=== PATIENT | female | born 1945 | race American Indian/Alaskan Native ===

== ENCOUNTER 2023-01-02 10:50 | Inpatient (IN) ==
[2023-01-02] MEDS ORDERED: IOPAMIDOL 100 ML BOTTLE IV ONE (10:51)
[2023-01-02] MEDS ORDERED: 0.9 % SODIUM CHLORIDE 1,000 ML IV ONE (11:01)
[2023-01-02 11:21] LABS: POC Calcium, Ionized 1.05 (1.16-1.32); POC Creatinine 0.6 (0.6-1.2); POC Potassium 4.5 (3.3-5.1)
[2023-01-02 11:53] LABS: Basophils # (Auto) 0.03 K/mcL (0.00-0.30); Basophils % (Auto) 0.4 % (0.0-2.0); Eosinophils # (Auto) 0.12 K/mcL (0.00-0.70); Eosinophils % (Auto) 1.5 % (0.0-7.0); Hematocrit 33.2 % (34.1-44.9); Hemoglobin 10.7 g/dL (11.2-15.7); Lymphocytes # (Auto) 1.17 K/mcL (1.50-4.80); Lymphocytes % (Auto) 14.8 % (15.5-49.0); Mean Cell Volume 81.6 fL (80.0-100.0); Mean Corpuscular HGB Conc 32.2 g/dL (31.0-36.0); Mean Platelet Volume 9.5 fL (8.8-12.5); Monocytes # (Auto) 0.85 K/mcL (0.10-0.90); Monocytes % (Auto) 10.8 % (1.0-12.0); Neutrophils % (Auto) 72.2 % (38.0-78.0); Platelet Count 450 K/mcL (140-440); RBC 4.07 M/mcL (3.59-5.38); Red Cell Distribution Width 15.7 % (11.5-14.5); WBC 7.9 K/mcL (4.5-11.0)
[2023-01-02 12:09] LABS: INR 1.4 (0.9-1.1); Prothrombin Time 17.2 sec (11.9-14.5)
[2023-01-02 12:14] LABS: ALT/SGPT 65 U/L (<40); AST/SGOT 69 U/L (<32); Albumin 2.7 gm/dL (3.2-5.2); Alkaline Phosphatase 163 U/L (39-117); Bilirubin,Direct < 0.2 mg/dL (0-0.3); Bilirubin,Total 0.3 mg/dL (0.1-1.0); Globulin 3.6 gm/dL (2.2-3.7)
[2023-01-02] MEDS ORDERED: FUROSEMIDE 40 MG/4 ML VIAL IV ONE (12:16)
[2023-01-02] MEDS ORDERED: VERAPAMIL 5 MG/2 ML VIAL IV ONE (12:34)
[2023-01-02] MEDS ORDERED: cefTRIAXone 1 GM VIAL IV ONE (13:06)
[2023-01-02 13:17] LABS: Appearance,Urine CLOUDY (Clear); Bacteria,Urine MANY /hpf (0); Bilirubin,Urine Negative (Negative); Color,Urine AMBER; Culture Indicated,Urine yes; Glucose,Urine (UA) >=500 mg/dL (Negative); Ketones,Urine Negative (Negative); Leukocyte Esterase,Urine 75 /uL (Negative); Mucus,Urine MANY /hpf; Nitrate,Urine Negative (Negative); Protein,Urine 30 mg/dL (Negative); Specific Gravity,Urine 1.023 (1.000-1.035); Urine Blood Negative (Negative); Urine Hyaline Cast 7 /lph (0-2); Urine RBC 7 /hpf (0-3); Urine Squamous Epithelial Cell 1 /hpf (0-4); Urine Transitional Epi Cells 2 /hpf (0-2); Urine WBC 168 /hpf (0-4)
[2023-01-02] MEDS ORDERED: POTASSIUM CHLORIDE 40 MEQ in DEXTROSE 5% IN WATER 500 ML IV PRN (16:53)
[2023-01-02] MEDS ORDERED: POLYETHYLENE GLYCOL 3350 17 GM PACKET PO PRN (16:53)
[2023-01-02] MEDS ORDERED: IPRATROPIUM/ALBUTEROL 3 ML AMPUL.NEB NEB PRN (16:53)
[2023-01-02] MEDS ORDERED: DEXTROSE 50% 50 ML VIAL IV PRN (16:53)
[2023-01-02] MEDS ORDERED: SENNOSIDES 1 TABLET PO PRN (16:53)
[2023-01-02] MEDS ORDERED: ACETAMINOPHEN 325 MG TABLET PO PRN (16:53)
[2023-01-02] MEDS ORDERED: DEXTROSE 31 GM ORAL.SUSP PO PRN (16:53)
[2023-01-02] MEDS ORDERED: MAGNESIUM SULFATE 2 GM/50 ML BAG IV PRN (16:53)
[2023-01-02] MEDS ORDERED: POTASSIUM CHLORIDE 20 MEQ TABLET PO PRN ×2 (16:53)
[2023-01-02] MEDS ORDERED: ONDANSETRON 4 MG/2 ML VIAL IV PRN (16:53)
[2023-01-02] MEDS: INSULIN LISPRO 1 UNIT/0.01 ML UNIT SQ SCH ×2 (18:12→21:18)
[2023-01-02] MEDS: FUROSEMIDE 40 MG/4 ML VIAL IV SCH (18:13)
[2023-01-02] MEDS ORDERED: LOPERAMIDE 2 MG CAPSULE PO PRN (18:44)
[2023-01-02] MEDS ORDERED: FLEETS ADULT ENEMA PR PRN (18:44)
[2023-01-02] MEDS ORDERED: BISACODYL 10 MG SUPP.RECT PR PRN (18:44)
[2023-01-02] MEDS ORDERED: LABETALOL 5 MG/ML ML IV PRN (18:46)
[2023-01-02] MEDS ORDERED: traMADol 50 MG TABLET PO PRN (19:51)
[2023-01-02] MEDS: ATORVASTATIN 40 MG TABLET PO SCH (21:20)
[2023-01-02] MEDS: DOCUSATE SODIUM 100 MG CAPSULE PO SCH (21:20)
[2023-01-02] MEDS: METOPROLOL TARTRATE 5 MG/5 ML VIAL IV PRN (23:37)
[2023-01-03] MEDS ORDERED: DEXTROSE 50% 50 ML SYRINGE IV ONE (03:02)
[2023-01-03 06:57] LABS: Basophils # (Auto) 0.04 K/mcL (0.00-0.30); Basophils % (Auto) 0.7 % (0.0-2.0); Eosinophils # (Auto) 0.25 K/mcL (0.00-0.70); Eosinophils % (Auto) 4.6 % (0.0-7.0); Hematocrit 37.3 % (34.1-44.9); Lymphocytes # (Auto) 0.81 K/mcL (1.50-4.80); Lymphocytes % (Auto) 14.9 % (15.5-49.0); Mean Cell Volume 81.4 fL (80.0-100.0); Mean Corpuscular HGB Conc 32.2 g/dL (31.0-36.0); Mean Platelet Volume 9.8 fL (8.8-12.5); Monocytes # (Auto) 0.65 K/mcL (0.10-0.90); Neutrophils % (Auto) 67.6 % (38.0-78.0); Platelet Count 266 K/mcL (140-440); RBC 4.58 M/mcL (3.59-5.38); Red Cell Distribution Width 15.6 % (11.5-14.5); WBC 5.4 K/mcL (4.5-11.0)
[2023-01-03 07:09] LABS: ALT/SGPT 55 U/L (<40); AST/SGOT 59 U/L (<32); Albumin 2.5 gm/dL (3.2-5.2); Albumin/Globulin Ratio 0.8 (1.0-2.3); Alkaline Phosphatase 150 U/L (39-117); Bilirubin,Direct < 0.2 mg/dL (0-0.3); Bilirubin,Total 0.3 mg/dL (0.1-1.0); Blood Urea Nitrogen 18 mg/dL (8-23); Carbon Dioxide 29 mmol/L (22-30); Chloride 91 mmol/L (96-108); Globulin 3.1 gm/dL (2.2-3.7); Glomerular Filtration Rate 71; Glucose 140 mg/dL (70-105); Lactate Dehydrogenase 292 U/L (135-225); Phosphorous 3.4 mg/dL (2.5-4.5); Triglycerides 54 mg/dL (<150); Uric Acid 1.4 mg/dL (2.5-8.0)
[2023-01-03] MEDS: METOPROLOL TARTRATE 5 MG/5 ML VIAL IV PRN ×2 (07:33→14:29)
[2023-01-03] MEDS ORDERED: INSULIN GLARGINE, HUMAN 1 UNIT/0.01 ML SQ SCH (09:00)
[2023-01-03] MEDS ORDERED: LEVOTHYROXINE 137 MCG PO SCH (09:00)
[2023-01-03] MEDS: buPROPion 150 MG TAB.XL.24H PO SCH (09:25)
[2023-01-03] MEDS: AMIODARONE HCL 200 MG TABLET PO SCH (09:25)
[2023-01-03] MEDS: ESCITALOPRAM 20 MG TABLET PO SCH (09:25)
[2023-01-03] MEDS: LEVOTHYROXINE 25 MCG TABLET PO SCH (09:26)
[2023-01-03] MEDS: DOCUSATE SODIUM 100 MG CAPSULE PO SCH ×2 (09:26→20:46)
[2023-01-03] MEDS: LEVOTHYROXINE SODIUM 112 MCG TABLET PO SCH (09:26)
[2023-01-03] MEDS: PANTOPRAZOLE 40 MG TABLET PO SCH (09:26)
[2023-01-03] MEDS: LISINOPRIL 20 MG TABLET PO SCH ×2 (09:26→22:33)
[2023-01-03] MEDS: INSULIN LISPRO 1 UNIT/0.01 ML UNIT SQ SCH ×4 (09:27→19:28)
[2023-01-03] MEDS: FUROSEMIDE 40 MG/4 ML VIAL IV SCH ×2 (09:27→17:26)
[2023-01-03] MEDS: INSULIN GLARGINE, HUMAN 1 UNIT/0.01 ML SQ SCH (09:28)
[2023-01-03] MEDS: cefTRIAXone 1 GM VIAL IV SCH (09:34)
[2023-01-03 15:21] LABS: LDH,Pleural Fluid 83 U/L (<122)
[2023-01-03 15:42] LABS: Appearance,Pleural Fluid Clear; Color,Pleural Fluid Yellow; Lymphocytes,Pleural Fluid 31 %; Mesothelial,Pleural Fluid 5 %; Monocytes,Pleural Fluid 17 %; Neutrophils,Pleural Fluid 47 %; Nucleated Cells,Pleural Fld 75 /cumm; RBC,Pleural Fluid <50,000 /cumm
[2023-01-03] MEDS: APIXABAN 5 MG TABLET PO SCH (20:46)
[2023-01-03] MEDS: ATORVASTATIN 40 MG TABLET PO SCH (20:46)
[2023-01-04] MEDS: LEVOTHYROXINE 25 MCG TABLET PO SCH (07:32)
[2023-01-04] MEDS: INSULIN LISPRO 1 UNIT/0.01 ML UNIT SQ SCH ×4 (07:32→21:19)
[2023-01-04] MEDS: FUROSEMIDE 40 MG/4 ML VIAL IV SCH ×2 (07:32→16:55)
[2023-01-04] MEDS: LEVOTHYROXINE SODIUM 112 MCG TABLET PO SCH (07:32)
[2023-01-04 07:39] LABS: ALT/SGPT 46 U/L (<40); AST/SGOT 56 U/L (<32); Albumin 2.4 gm/dL (3.2-5.2); Albumin/Globulin Ratio 0.8 (1.0-2.3); Alkaline Phosphatase 133 U/L (39-117); Bilirubin,Direct < 0.2 mg/dL (0-0.3); Bilirubin,Total 0.4 mg/dL (0.1-1.0); Blood Urea Nitrogen 21 mg/dL (8-23); Calcium 7.7 mg/dL (8.6-10.4); Carbon Dioxide 27 mmol/L (22-30); Chloride 92 mmol/L (96-108); Globulin 2.9 gm/dL (2.2-3.7); Glomerular Filtration Rate 62; Glucose 104 mg/dL (70-105); Lactate Dehydrogenase 291 U/L (135-225); Triglycerides 63 mg/dL (<150); Uric Acid 1.7 mg/dL (2.5-8.0)
[2023-01-04] MEDS ORDERED: ALBUMIN HUMAN 12.5 GM/50 ML VIAL IV ONE (08:11)
[2023-01-04] MEDS: cefTRIAXone 1 GM VIAL IV SCH (09:00)
[2023-01-04] MEDS: APIXABAN 5 MG TABLET PO SCH ×2 (09:00→21:19)
[2023-01-04] MEDS: DOCUSATE SODIUM 100 MG CAPSULE PO SCH ×2 (09:00→21:19)
[2023-01-04] MEDS: AMIODARONE HCL 200 MG TABLET PO SCH (09:00)
[2023-01-04] MEDS: ESCITALOPRAM 20 MG TABLET PO SCH (09:00)
[2023-01-04] MEDS: buPROPion 150 MG TAB.XL.24H PO SCH (09:00)
[2023-01-04] MEDS: PANTOPRAZOLE 40 MG TABLET PO SCH (09:00)
[2023-01-04] MEDS: INSULIN GLARGINE, HUMAN 1 UNIT/0.01 ML SQ SCH (09:11)
[2023-01-04] MEDS: METOPROLOL SUCCINATE 25 MG TAB.XL.24H PO SCH (10:58)
[2023-01-04] MEDS: ATORVASTATIN 40 MG TABLET PO SCH (21:19)
[2023-01-05 07:08] LABS: ALT/SGPT 50 U/L (<40); AST/SGOT 66 U/L (<32); Albumin 2.3 gm/dL (3.2-5.2); Albumin/Globulin Ratio 0.7 (1.0-2.3); Alkaline Phosphatase 130 U/L (39-117); Bilirubin,Direct < 0.2 mg/dL (0-0.3); Bilirubin,Total 0.3 mg/dL (0.1-1.0); Blood Urea Nitrogen 23 mg/dL (8-23); Calcium 7.8 mg/dL (8.6-10.4); Carbon Dioxide 26 mmol/L (22-30); Chloride 91 mmol/L (96-108); Globulin 3.2 gm/dL (2.2-3.7); Glomerular Filtration Rate 54; Glucose 91 mg/dL (70-105); Lactate Dehydrogenase 292 U/L (135-225); Phosphorous 3.6 mg/dL (2.5-4.5); Triglycerides 59 mg/dL (<150); Uric Acid 1.9 mg/dL (2.5-8.0)
[2023-01-05] MEDS ORDERED: ALBUMIN HUMAN 12.5 GM/50 ML VIAL IV ONE (07:32)
[2023-01-05] MEDS ORDERED: FUROSEMIDE 40 MG/4 ML VIAL IV ONE ×2 (07:32→09:21)
[2023-01-05] MEDS: LEVOTHYROXINE 25 MCG TABLET PO SCH (07:57)
[2023-01-05] MEDS: LEVOTHYROXINE SODIUM 112 MCG TABLET PO SCH (07:57)
[2023-01-05] MEDS: INSULIN LISPRO 1 UNIT/0.01 ML UNIT SQ SCH (07:57)
[2023-01-05] MEDS: METOPROLOL SUCCINATE 25 MG TAB.XL.24H PO SCH (08:32)
[2023-01-05] MEDS: AMIODARONE HCL 200 MG TABLET PO SCH (08:32)
[2023-01-05] MEDS: buPROPion 150 MG TAB.XL.24H PO SCH (08:32)
[2023-01-05] MEDS: cefTRIAXone 1 GM VIAL IV SCH (08:32)
[2023-01-05] MEDS: PANTOPRAZOLE 40 MG TABLET PO SCH (08:32)
[2023-01-05] MEDS: ESCITALOPRAM 20 MG TABLET PO SCH (08:32)
[2023-01-05] MEDS: DOCUSATE SODIUM 100 MG CAPSULE PO SCH (08:32)
[2023-01-05] MEDS: INSULIN GLARGINE, HUMAN 1 UNIT/0.01 ML SQ SCH (08:32)
[2023-01-05] MEDS: APIXABAN 5 MG TABLET PO SCH (08:32)
== END 2023-01-05 11:15 | DRG 70 ==
LOC: ED 10:50 → ICU 16:46
PROVIDERS: ADMIT Internal Medicine; ATTEND Internal Medicine